=== PATIENT | female | born 1965 | race Caucasian/White ===

== ENCOUNTER → 2018-11-11 | Outpatient (CLI) | payer OTHER ==
[~2018-11-11] MED LIST: ACET-1600 PO; ALPR-475 PO; CHOL200024 PO; LORA-856 PO; METO25TA35 PO; MULT-516 PO; OMEG-14 PO
[2018-11-11 16:12] LABS: BASOPHILS # (AUTO) 0.06 x10^3/uL (0-0.1); BASOPHILS % (AUTO) 0 % (0-1); EOSINOPHILS # (AUTO) 0.28 x10^3/uL (0-0.4); EOSINOPHILS % (AUTO) 2 % (1-7); LYMPHOCYTES % (AUTO) 23 % (22-44); MD NO; MEAN CORPUSCULAR HEMOGLOBIN 32.4 pg (27.0-34.8); MEAN CORPUSCULAR HGB CONC 34.8 g/dL (32.4-35.8); MEAN PLATELET VOLUME 7.3 fL (7.4-10.4); MONOCYTES # (AUTO) 0.34 x10^3/uL (0.2-0.8); MONOCYTES % (AUTO) 2 % (2-9); NEUTROPHILS # (AUTO) 10.86 x10^3/uL (1.8-6.8); NEUTROPHILS % (AUTO) 73 % (42-75); PLATELET COUNT 448 x10^3/uL (130-400); RED BLOOD COUNT 4.49 x10^6/uL (3.82-5.3); RED CELL DISTRIBUTION WIDTH 13.3 % (9.6-15.2)
[2018-11-11 16:17] LABS: INTERNATIONAL NORMALIZED RATIO 0.95 (0.93-1.1)
[2018-11-11 16:18] LABS: ALANINE AMINOTRANSFERASE 35 U/L (12-78); ALBUMIN 3.9 g/dL (3.4-5.0); ANION GAP 6 mmol/L (5-15); CALCIUM 9.5 mg/dL (8.5-10.1); CHLORIDE 106 mmol/L (98-107); CREATININE 0.61 mg/dL (0.55-1.02)
[2018-11-11 16:24] LABS: ALKALINE PHOSPHATASE 69 U/L (45-117); BILIRUBIN,TOTAL 0.4 mg/dL (0.2-1.0); TOTAL PROTEIN 7.4 g/dL (6.4-8.2)
== END | disposition home or self-care (01) ==
LOC: STAR 14:55
PROVIDERS: ATTEND Specialist
DX: Z01.811 Encounter for preprocedural respiratory examination (principal); R19.01 Right upper quadrant abdominal swelling, mass and lump; R00.0 Tachycardia, unspecified; R94.31 Abnormal electrocardiogram [ECG] [EKG]
CPT/HCPCS: 36415; 71046; 80053; 82378; 85025; 85610; 85730; 86304; 93005

== ENCOUNTER 2018-11-21 08:30 | Inpatient (IN) | payer OTHER ==
[2018-11-11 15:18] VITALS: BP 181/99
[~2018-11-21] VITALS: Ht 157.5 cm; Wt 80.1 kg
[2018-11-21] MEDS ORDERED: LACTATED RINGERS 1,000 ML IV SCH (10:39)
[2018-11-21] MEDS ORDERED: MIDAZOLAM 1 MG/ML, 2ML ONE (11:52)
[2018-11-21] MEDS ORDERED: FENTANYL PF 250 MCG/5ML ONE (11:52)
[2018-11-21] MEDS ORDERED: DEXAMETHASONE 4 MG/ML, 1ML ONE (12:52)
[2018-11-21] MEDS ORDERED: PROPOFOL 10 MG/ML, 20ML ONE (12:52)
[2018-11-21] MEDS ORDERED: GLYCOPYRROLATE 0.2MG/1ML, 5ML ONE (12:52)
[2018-11-21] MEDS ORDERED: ONDANSETRON 2MG/ML, 2ML ONE (12:52)
[2018-11-21] MEDS ORDERED: NEOSTIGMINE 1 MG/ML, 10ML ONE (12:52)
[2018-11-21] MEDS ORDERED: SUCCINYLCHOLINE 20 MG/ML, 10ML ONE (12:52)
[2018-11-21] MEDS ORDERED: ROCURONIUM 10 MG/ML,10ML ONE (12:52)
[2018-11-21] MEDS ORDERED: HYDROmorphone 2 MG/ML, 1ML ONE (14:22)
[2018-11-21] MEDS ORDERED: FENTANYL PF 100 MCG/2ML ONE ×2 (14:22→15:44)
[2018-11-21] MEDS: FENTANYL PF 100 MCG/2ML IV PRN ×3 (14:25→15:48)
[2018-11-21] MEDS: HYDROmorphone 1 MG/ML, 1ML INJ IV PRN ×4 (14:29→15:11)
[2018-11-21] MEDS ORDERED: MEPERIDINE/PF 25MG/0.5ML IVPush PRN (14:30)
[2018-11-21] MEDS ORDERED: METOCLOPRAMIDE 5 MG/ML, 2ML IV PRN ×2 (14:30)
[2018-11-21] MEDS ORDERED: OXYcodone 5 MG/5 ML ORAL.SOL UDC PO PRN (14:30)
[2018-11-21] MEDS ORDERED: PROMETHAZINE 25 MG/ML, 1ML IV PRN (14:30)
[2018-11-21] MEDS ORDERED: KETOROLAC 30 MG/1 ML IV PRN ×2 (14:30)
[2018-11-21] MEDS ORDERED: LABETALOL 5 MG/ML SYRINGE IV PRN (14:30)
[2018-11-21] MEDS ORDERED: ONDANSETRON 2MG/ML, 2ML IVPush PRN (14:30)
[2018-11-21] MEDS ORDERED: ALBUTEROL SULFATE 2.5 MG/3 ML NPPB PRN (14:30)
[2018-11-21] MEDS ORDERED: hydrALAzine 20 MG/ML, 1ML IV PRN (14:30)
[2018-11-21] MEDS ORDERED: PROMETHAZINE 25 MG/ML, 1ML ONE (14:31)
[2018-11-21] MEDS ORDERED: hydrALAzine 20 MG/ML, 1ML ONE (14:59)
[2018-11-21] MEDS ORDERED: LORazepam 2 MG/ML, 1ML ONE (15:02)
[2018-11-21] MEDS ORDERED: LORazepam 2 MG/ML, 1ML IVPush PRN (15:30)
[2018-11-21] MEDS: D5%-0.45NACL+KCL 20MEQ 1,000 ML IV SCH (19:39)
[2018-11-21 19:42] VITALS: BP 142/84
[2018-11-21] MEDS: FAMOTIDINE 20 MG TABLET PO SCH (19:57)
[2018-11-22 02:13] VITALS: BP 99/62
[2018-11-22] MEDS: D5%-0.45NACL+KCL 20MEQ 1,000 ML IV SCH ×2 (02:50→11:43)
[2018-11-22 05:25] LABS: BASOPHILS # (AUTO) 0.06 x10^3/uL (0-0.1); BASOPHILS % (AUTO) 0 % (0-1); EOSINOPHILS # (AUTO) 0.05 x10^3/uL (0-0.4); EOSINOPHILS % (AUTO) 0 % (1-7); LYMPHOCYTES # (AUTO) 2.13 x10^3/uL (1-3.4); LYMPHOCYTES % (AUTO) 13 % (22-44); MD NO; MEAN CORPUSCULAR HEMOGLOBIN 32.2 pg (27.0-34.8); MEAN CORPUSCULAR HGB CONC 34.2 g/dL (32.4-35.8); MEAN CORPUSCULAR VOLUME 94.2 fL (80-100); MEAN PLATELET VOLUME 7.4 fL (7.4-10.4); MONOCYTES # (AUTO) 0.79 x10^3/uL (0.2-0.8); MONOCYTES % (AUTO) 5 % (2-9); NEUTROPHILS # (AUTO) 13.27 x10^3/uL (1.8-6.8); NEUTROPHILS % (AUTO) 81 % (42-75); PLATELET COUNT 383 x10^3/uL (130-400); RED BLOOD COUNT 3.98 x10^6/uL (3.82-5.3); RED CELL DISTRIBUTION WIDTH 14.2 % (9.6-15.2)
[2018-11-22 05:26] LABS: ALBUMIN 2.7 g/dL (3.4-5.0); ANION GAP 7 mmol/L (5-15); CHLORIDE 106 mmol/L (98-107)
[2018-11-22 05:28] LABS: CREATININE 0.51 mg/dL (0.55-1.02)
[2018-11-22 06:44] VITALS: BP 136/74
[2018-11-22] MEDS ORDERED: POTASSIUM CHLORIDE 10 MEQ in SODIUM CHLORIDE 0.9% 250 ML IV ONE (09:00)
[2018-11-22] MEDS ORDERED: OXYcodone/APAP 5/325MG TABLET PO PRN (09:00)
[2018-11-22] MEDS: FAMOTIDINE 20 MG TABLET PO SCH ×2 (09:12→20:35)
[2018-11-22 12:42] VITALS: BP 126/74
[2018-11-22 20:04] VITALS: BP 135/70
[2018-11-23] MEDS: D5%-0.45NACL+KCL 20MEQ 1,000 ML IV SCH ×2 (01:57→21:35)
[2018-11-23 02:24] VITALS: BP 150/80
[2018-11-23 04:36] LABS: BASOPHILS # (AUTO) 0.04 x10^3/uL (0-0.1); BASOPHILS % (AUTO) 0 % (0-1); EOSINOPHILS # (AUTO) 0.16 x10^3/uL (0-0.4); EOSINOPHILS % (AUTO) 1 % (1-7); LYMPHOCYTES # (AUTO) 2.08 x10^3/uL (1-3.4); LYMPHOCYTES % (AUTO) 14 % (22-44); MD NO; MEAN CORPUSCULAR HEMOGLOBIN 32.5 pg (27.0-34.8); MEAN CORPUSCULAR HGB CONC 34.5 g/dL (32.4-35.8); MEAN CORPUSCULAR VOLUME 94.2 fL (80-100); MEAN PLATELET VOLUME 7.1 fL (7.4-10.4); MONOCYTES # (AUTO) 0.93 x10^3/uL (0.2-0.8); MONOCYTES % (AUTO) 6 % (2-9); NEUTROPHILS # (AUTO) 11.76 x10^3/uL (1.8-6.8); NEUTROPHILS % (AUTO) 79 % (42-75); PLATELET COUNT 324 x10^3/uL (130-400); RED BLOOD COUNT 3.58 x10^6/uL (3.82-5.3)
[2018-11-23 04:58] LABS: CHLORIDE 108 mmol/L (98-107)
[2018-11-23 05:02] LABS: ANION GAP 4 mmol/L (5-15); CALCIUM 8.6 mg/dL (8.5-10.1); CREATININE 0.42 mg/dL (0.55-1.02)
[2018-11-23 07:30] VITALS: BP 144/85
[2018-11-23] MEDS: FAMOTIDINE 20 MG TABLET PO SCH ×2 (08:36→21:35)
[2018-11-23] MEDS ORDERED: POTASSIUM CHLORIDE 20 MEQ in SODIUM CHLORIDE 0.9% 250 ML IV ONE (09:00)
[2018-11-23 09:17] LABS: MICROSCOPIC AUTO
[2018-11-23] MEDS: METOPROLOL SUCCINATE 25 MG TAB.ER.24H PO SCH (10:09)
[2018-11-23] MEDS: CEFAZOLIN 500 MG in SODIUM CHLORIDE 0.9% 50 ML IV SCH ×3 (10:09→21:35)
[2018-11-23 12:25] VITALS: BP 139/76
[2018-11-23] MEDS ORDERED: D5%-0.45NACL+KCL 20MEQ 1,000 ML IV SCH (16:30)
[2018-11-23 19:29] VITALS: BP 160/82
[2018-11-23] MEDS ORDERED: METOPROLOL TARTRATE 25 MG TABLET PO SCH (21:00)
[2018-11-24 01:30] VITALS: BP 145/75
[2018-11-24] MEDS: CEFAZOLIN 500 MG in SODIUM CHLORIDE 0.9% 50 ML IV SCH ×2 (03:59→08:35)
[2018-11-24 04:57] LABS: BASOPHILS # (AUTO) 0.05 x10^3/uL (0-0.1); BASOPHILS % (AUTO) 0 % (0-1); EOSINOPHILS # (AUTO) 0.24 x10^3/uL (0-0.4); EOSINOPHILS % (AUTO) 2 % (1-7); LYMPHOCYTES # (AUTO) 1.71 x10^3/uL (1-3.4); LYMPHOCYTES % (AUTO) 12 % (22-44); MD NO; MEAN CORPUSCULAR HEMOGLOBIN 31.9 pg (27.0-34.8); MEAN CORPUSCULAR HGB CONC 34.2 g/dL (32.4-35.8); MEAN CORPUSCULAR VOLUME 93.2 fL (80-100); MEAN PLATELET VOLUME 7.5 fL (7.4-10.4); MONOCYTES # (AUTO) 0.57 x10^3/uL (0.2-0.8); MONOCYTES % (AUTO) 4 % (2-9); NEUTROPHILS # (AUTO) 11.95 x10^3/uL (1.8-6.8); NEUTROPHILS % (AUTO) 82 % (42-75); PLATELET COUNT 364 x10^3/uL (130-400)
[2018-11-24 05:06] LABS: ANION GAP 6 mmol/L (5-15); CALCIUM 8.9 mg/dL (8.5-10.1); CHLORIDE 107 mmol/L (98-107)
[2018-11-24 05:09] LABS: CREATININE 0.43 mg/dL (0.55-1.02)
[2018-11-24 06:07] VITALS: BP 149/83
[2018-11-24] MEDS: METOPROLOL SUCCINATE 25 MG TAB.ER.24H PO SCH (06:09)
[2018-11-24] MEDS: D5%-0.45NACL+KCL 20MEQ 1,000 ML IV SCH (08:35)
[2018-11-24 08:48] VITALS: BP 151/75
[2018-11-24] MEDS: FAMOTIDINE 20 MG TABLET PO SCH (08:48)
[2018-11-24] MEDS ORDERED: ACETAMINOPHEN 500 MG TABLET PO PRN (09:30)
[2018-11-24] MEDS: CEPHALEXIN 500 MG CAPSULE PO SCH ×2 (11:11→17:12)
[2018-11-24 14:32] VITALS: BP 158/88
== END 2018-11-24 19:20 | disposition home or self-care (01) | DRG 742 ==
LOC: ORIP 10:00 → 3NW 16:29
PROVIDERS: ADMIT Specialist; ATTEND Specialist
PROC: 0UT20ZZ Resection of Bilateral Ovaries, Open Approach (ICD-10-PCS; 2018-11-21)
PROC: 0UT70ZZ Resection of Bilateral Fallopian Tubes, Open Approach (ICD-10-PCS; 2018-11-21)
PROC: 0UT90ZZ Resection of Uterus, Open Approach (ICD-10-PCS; principal; 2018-11-21 11:00)
DX: D27.0 Benign neoplasm of right ovary (principal); K56.7 Ileus, unspecified; E78.5 Hyperlipidemia, unspecified; E87.6 Hypokalemia; I10 Essential (primary) hypertension; N73.2 Unspecified parametritis and pelvic cellulitis
CPT/HCPCS: 36415; 74018; 80048; 81001; 82040; 83735; 85025; 86850; 86900; 86923; 88305; 88307; 88331; C1729; G0378; J0690; J1100; J1170; J2250; J2270; J2405; J2704; J2710; J3010; J3480; C1765; C1769; J0330; J0360; J7050; J7120